=== PATIENT | female | born 1945 | race Caucasian/White ===

== ENCOUNTER 2018-04-13 00:34 | Outpatient (CLI) | payer MEDICARE, BC, SELFPAY ==
[2018-04-13] MEDS: Barium Sulfate 700 MG TAB PO (09:46)
[2018-04-13] MEDS: Barium Sulfate 60% W/V 355 ML BTL PO (09:46)
--- NOTE | 2018-04-13 09:47 | DI.REPORT_ITS ---
SYMPTOMS/DIAGNOSIS: OROPHARYNGEAL DYSPHAGIA, R13.12 MODIFIED BARIUM SWALLOW: Fluoroscopy Time: 1min 7sec Modified barium swallow was performed according to the usual protocol and shows normal deglutition. There is intermittent tertiary contraction of the esophagus in the mid esophageal region. There was also intermittent spasm of the distal esophagus, which appeared to coincide with abdominal pain experienced by the patient. No focal mucosal abnormality identified. The patient has had a previous gastric stapling procedure. A 12 mm barium tablet passed through the esophagus into the stomach and the patient complained of discomfort with the barium tablet in the stomach. There is a question of wall irregularity of the gastric fundus and body; the possibility of gastritis or ulceration is not excluded. CONCLUSION: Unremarkable deglutition on a modified barium swallow. Additional findings include tertiary contractions of the esophagus and intermittent spasm of the distal esophagus. Findings are also noted raising the possibility of gastritis or gastric ulceration as described above. Correlation with endoscopy requested as described above.
== END 2018-04-13 00:35 ==
PROVIDERS: PCP Family Medicine; Visit Provider Internal Medicine
DX: R13.12 Dysphagia, oropharyngeal phase (principal); K22.4 Dyskinesia of esophagus; K22.8 Other specified diseases of esophagus
CPT/HCPCS: 74220; 92611; G8996; J3490

== ENCOUNTER 2018-04-13 03:45 | Outpatient (CLI) | payer MEDICARE, OTHER, SELFPAY | END 2018-04-13 03:46 | PROVIDERS: PCP Family Medicine | DX: R13.12 Dysphagia, oropharyngeal phase (principal) | CPT/HCPCS: 92611; G8996 ==

== ENCOUNTER 2018-05-03 13:52 | Outpatient (REF) | payer MEDICARE, BC, SELFPAY ==
[2018-05-03 16:13] LABS: Anion Gap 4.7 mmol/L (3-11); BUN 49 mg/dL (7-18); CO2 34.3 mmol/L (21.0-32.0); Calcium 9.2 mg/dL (8.5-10.1); Chloride 98 mmol/L (98-107); Estimated GFR 44.04 (mL/min/1.73m2); Glucose 176 mg/dL (70-100); NT-proBNP 4458 pg/mL; Potassium 3.2 mmol/L (3.5-5.1); Sodium 137 mmol/L (136-145)
== END 2018-05-03 14:12 ==
LOC: NCHCN 13:52
PROVIDERS: PCP Family Medicine; Visit Provider Family Medicine
DX: I50.9 Heart failure, unspecified (principal)
CPT/HCPCS: 80048; 83880

== ENCOUNTER 2018-07-01 11:50 | Outpatient (REF) | payer MEDICARE, OTHER, SELFPAY ==
[2018-07-01 20:38] LABS: Hemoglobin A1C 9.8 % (4.5-6.2)
[2018-07-01 22:29] LABS: HCT 39.3 % (36.0-46.0); HGB 13.5 g/dL (12.0-15.5)
== END 2018-07-01 12:10 ==
LOC: NCHCN 11:50
PROVIDERS: PCP Family Medicine; Visit Provider Family Medicine
DX: E11.9 Type 2 diabetes mellitus without complications (principal); R60.0 Localized edema
CPT/HCPCS: 83036; 85014; 85018

== ENCOUNTER 2018-07-11 12:20 | Emergency (ER) | payer MEDICARE, BC, OTHER, SELFPAY ==
[2018-07-11 12:38] VITALS: BP 127/58; PULSE 70; RESP 20; TEMP 37; O2SAT 97
--- NOTE | 2018-07-11 13:26 | DI.RAD_ITS ---
SYMPTOMS/DIAGNOSIS: HAND PAIN S/P FALL, CONCERN FOR 5TH DIGIT INJURY LEFT HAND: Three views. Comparison 03/05/16. There are severe osteoarthritic changes of the left hand. Findings include marked joint space narrowing and marked hypertrophic changes with subchondral cysts and sclerosis. The findings are most marked at the 1st carpometacarpal joint and the interphalangeal joints of the left ring finger. No acute fracture or dislocation is seen. Vascular calcifications are seen in the soft tissues, which are otherwise unremarkable. 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
--- NOTE | 2018-07-11 14:46 | W.ED.GENAD ---
Discharge Plan Disposition Patient Disposition: HOME Condition: Stable Discharge Details Chief Complaint: Orthopedic Clinical Impression: Sprain of left little finger Primary Care Provider: Ruby Lockhart V ED Provider: Dk Webb Home Meds and New Rx's Prescriptions: No Action methocarbamol 500 MG tablet 500 mg PO TID RF: 0 sennosides-docusate sodium [Senokot-S] 1 EACH tablet 1 ea PO Other day RF: 0 levothyroxine 88 MCG tablet 88 mcg PO DAILY RF: 0 docusate sodium [Colace] 100 MG capsule 100 mg PO DAILY RF: 0 cholecalciferol (vitamin D3) [Vitamin D3] 1,000 UNIT capsule 1,000 unit PO RF: 0 lidocaine (PF) in D7.5W 2 ML solution 2 ml Intrathecal RF: 0 liraglutide [Victoza 2-Marcelo] 0.6 MG/0.1 ML pen injector 1.8 mg SQ DAILY RF: 0 Metoprolol Succinate 25 MG TAB.ER.24H 25 mg PO DAILY RF: 0 albuterol sulfate [Proventil HFA] 1 PUFF HFA aerosol inhaler 2 puff Inhalation Q4H PRN PRNQty: 0 RF: 0 aspirin [Aspirin Low-Strength] 81 MG tablet,chewable 81 mg PO DAILY RF: 0 atorvastatin [Lipitor] 10 MG tablet 40 mg PO HS RF: 0 albuterol sulfate 2.5 MG/3 ML solution for nebulization 2.5 mg Inhalation Q4H PRNRF: 0 loratadine-pseudoephedrine [Claritin-D 24 Hour] 1 EACH tablet extended release 24 hr 1 tab PO DAILY PRNRF: 0 ascorbic acid (vitamin C) [Vitamin C] 500 MG tablet 500 mg PO DAILY RF: 0 vitamin E 400 UNIT capsule 400 unit PO DAILY RF: 0 omega-3 fatty acids-fish oil [Fish Oil] 1 EACH capsule 1 ea PO BID RF: 0 liraglutide [Victoza 2-Marcelo] 0.6 MG/0.1 ML pen injector 1.2 mg SQ DAILY RF: 0 insulin glargine [Lantus U-100 Insulin] 100 UNIT/1 ML solution 30 unit SQ HS Qty: 0 RF: 0 diltiazem HCl 30 MG tablet 15 mg PO Q8H Qty: 60 RF: 0 torsemide 10 MG tablet 20 mg PO BID DIURETIC PRNQty: 0 RF: 0 spironolactone 25 MG tablet 12.5 mg PO BID PRNQty: 0 RF: 0 potassium chloride [Klor-Con M10] 10 MEQ tablet,ER particles/crystals 10 meq PO DAILY Qty: 7 RF: 0 clonazepam 1 MG tablet 1 mg PO TID Qty: 15 RF: 0 cephalexin 500 MG capsule 500 mg PO TID Qty: 21 RF: 0 Discharge Instructions Instructions: Finger Sprain (ED) Additional Instructions: Return immediately to the emergency department for any current further concern about emergent need of evaluation for your falls. 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 If your finger continues to have any discomfort feel free to call orthopedist for reassessment as needed. Referrals: Ruby Lockhart MD [Primary Care Provider] - (As previously scheduled) Melecio Friend MD [ [facility]FF [facility]IC[facility]] - Prince Calloway MD [ [facility] ST[facility]FF PHYSICIAN] - Discharge Data Discharge Date/Time-TO BE ENTERED AT DEPARTURE: 07/11/18 14:53 Medical Decision Making Patient presenting the emergency department chief complaint of left little finger injury. Patient states that she fell this morning and injured her finger. Family reports that patient has had recent falls that are increasing in frequency that is been evaluated by primary care provider. Patient states that she is only here for evaluation of her finger. Due to high volume in the emergency department radiological imaging of the finger was ordered prior to examination of the patient. Review of radiological imaging shows no acute fracture. Patient was assessed and is alert and oriented moving all extremities and has no focal neurological deficits but does have pain ecchymosis and swelling to the middle and distal phalanx of the left fifth digit. I feel that this is more of a sprain but I am concerned about patient's frequency of falls. Both patient and daughter states that they are only here due to the finger injury and are not concerned about the falls as they have been assessed and evaluated by primary care and are more attributed to patient's ongoing weakness and deconditioning. Given that patient is in the emergency department I did offer additional testing including labs, cardiac tests as warranted, and CT scan of the head. They refused these at this time and again reiterates they are simply here for examination of the finger they do not want any other exam performed. Did call and speak with primary care office and spoke with nurse of patient's primary care provider. She states that patient has been having thorough workup for this and has had some deconditioning confirming what family member state. Patient does have close follow-up with their office. Given this I do not feel that going against patient wishes is warranted at this time but they were encouraged strongly to return for any new or significant worsening of symptoms or if they wanted any further emergency evaluation of worsening falls. After discussion of diagnosis and plan of care patient and family have no further needs, questions, or concerns and states clear understanding to return to the emergency department for any worsening symptoms. HPI General Mode of arrival: wheelchair. Date/Time Provider Initiated Documentation: 07/11/18 13:13. Limitations to Documentation: no limitations. Information obtained by: patient, family and RN notes reviewed. History of Present Illness 73 year old F presents to the emergency department with the chief complaint of Left little finger injury, with intensity rated at 9. Quality is described as sharp, and is localized to the left and upper extremity. Patient reports no radiation. Patient started experiencing this hour(s) (3) and it has been constant. No relieving factors improve symptom(s), Movement worsens symptoms . Patient notes no other symptoms.. Patient did receive the following treatments prior to arrival, none Related Data Home Medications Medication Instructions Recorded Confirmed albuterol sulfate [Proventil HFA] 2 puff INHALATION Q4H PRN PRN #0 05/12/15 05/21/17 aspirin [Aspirin Low-Strength] 81 mg PO DAILY 05/06/16 05/21/17 albuterol sulfate 2.5 mg INHALATION Q4H PRN 01/12/17 03/29/17 ascorbic acid (vitamin C) [Vitamin 500 mg PO DAILY 01/12/17 05/21/17 C] atorvastatin [Lipitor] 40 mg PO HS 01/12/17 05/21/17 liraglutide [Victoza 2-Marcelo] 1.2 mg SQ DAILY 01/12/17 03/29/17 loratadine-pseudoephedrine 1 tab PO DAILY PRN 01/12/17 03/29/17 [Claritin-D 24 Hour] omega-3 fatty acids-fish oil [Fish 1 ea PO BID 01/12/17 05/21/17 Oil] vitamin E 400 unit PO DAILY 01/12/17 05/21/17 insulin glargine [Lantus U-100 30 unit SQ HS #0 01/15/17 05/21/17 Insulin] diltiazem HCl 15 mg PO Q8H #60 tablet 03/29/17 05/21/17 potassium chloride [Klor-Con M10] 10 meq PO DAILY #7 tabcr 03/29/17 05/21/17 spironolactone 12.5 mg PO BID PRN #0 03/29/17 05/21/17 torsemide 20 mg PO BID DIURETIC PRN #0 03/29/17 05/21/17 Metoprolol Succinate 25 mg PO DAILY tab-cap 05/14/17 05/21/17 cholecalciferol (vitamin D3) 1,000 unit PO 05/14/17 [Vitamin D3] docusate sodium [Colace] 100 mg PO DAILY tab-cap 05/14/17 05/21/17 levothyroxine 88 mcg PO DAILY tab-cap 05/14/17 lidocaine (PF) in D7.5W 2 ml INTRATHECAL 05/14/17 liraglutide [Victoza 2-Marcelo] 1.8 mg SQ DAILY ml 05/14/17 methocarbamol 500 mg PO TID 05/14/17 05/21/17 sennosides-docusate sodium 1 ea PO Other day 05/14/17 05/21/17 [Senokot-S] cephalexin 500 mg PO TID #21 capsule 05/21/17 clonazepam 1 mg PO TID #15 tab 05/21/17 Previous Rx's Medication Instructions Recorded albuterol sulfate [Proventil HFA] 2 puff INHALATION Q4H PRN PRN #0 05/12/15 insulin glargine [Lantus U-100 30 unit SQ HS #0 01/15/17 Insulin] diltiazem HCl 15 mg PO Q8H #60 tablet 03/29/17 potassium chloride [Klor-Con M10] 10 meq PO DAILY #7 tabcr 03/29/17 spironolactone 12.5 mg PO BID PRN #0 03/29/17 torsemide 20 mg PO BID DIURETIC PRN #0 03/29/17 cephalexin 500 mg PO TID #21 capsule 05/21/17 clonazepam 1 mg PO TID #15 tab 05/21/17 Allergies Allergy/AdvReac Type Severity Reaction Status Date / Time cyclobenzaprine HCl Allergy Intermediate hives and Unverified 05/21/17 11:50 [From Flexeril] swelling dofetilide [From Tikosyn] Allergy Mild Hives Unverified 05/21/17 11:50 phenyltoloxamine citrate Allergy Hives Unverified 05/21/17 11:50 [From Percogesic] metformin AdvReac Diarrhea Unverified 05/21/17 11:50 General Stated Complaint: Orthopedic PRAVEEN: 4 Review of Systems Constitutional Reports frequent falls Cardiovascular Denies chest pain, Denies diaphoresis and Denies irregular heart rhythm Musculoskeletal Reports as per HPI, Denies numbness and Denies tingling Neurologic Reports frequent falls, Denies numbness and Denies tingling PFSH Social History Smoking/Tobacco Use Status: Never Exam Const General: cooperative, healthy appearing and no acute distress Orientation: alert, awake and oriented x3 HENMT Head: normal to inspection, normocephalic and atraumatic Eyes General: appearance normal, both eyes and all related structures Pupils: PERRL Resp Effort & Inspection: normal respiratory effort and able to speak in complete sentences Cardio Rate: regular rate Rhythm: regular rhythm Extrem General: normal exam except as noted Left upper extremity: hand Details: normal capillary refill, neuromotor exam normal, neurosensory exam normal, tendon exam normal, tenderness Location: of the 5th digit Location: at the middle phalanx and at the distal phalanx, normal ROM of fingers, swelling Location: of the 5th digit Location: at the middle phalanx and ecchymosis Location: of the 5th digit Location: at the middle phalanx and at the PIP joint; no lacerations and no crepitus Course Vital Signs Temperature 37.0 C 07/11/18 12:38 Pulse 70 07/11/18 12:38 Respiratory Rate 20 07/11/18 12:38 Blood Pressure 127/58 L 07/11/18 12:38 Pulse Oximetry 97 07/11/18 12:38 Temperature 37.0 C 07/11/18 12:38 Temperature Source Temporal Artery Scan 07/11/18 12:38 Pulse 70 07/11/18 12:38 Respiratory Rate 20 07/11/18 12:38 Blood Pressure 127/58 L 11/12/18 12:38 Blood Pressure Position Sitting 07/11/18 12:38 Pulse Oximetry 97 07/11/18 12:38 Oxygen Delivery Method Room Air 07/11/18 12:38 Oxygen Flow Rate 0 07/11/18 12:38 Pain Level 9 07/11/18 12:38
== END 2018-07-11 14:53 | disposition home or self-care (01) ==
PROVIDERS: Emergency Provider Nurse Practitioner Family; PCP Family Medicine
DX: S63.617A Unspecified sprain of left little finger, initial encounter (principal); W18.30XA Fall on same level, unspecified, initial encounter; R29.6 Repeated falls; J44.9 Chronic obstructive pulmonary disease, unspecified; E11.9 Type 2 diabetes mellitus without complications; Z79.4 Long term (current) use of insulin; I10 Essential (primary) hypertension
CPT/HCPCS: 99283; 73130

== ENCOUNTER 2018-07-13 01:57 | Outpatient (CLI) | payer MEDICARE, OTHER, SELFPAY ==
[2018-07-13 08:54] LABS: Bilirubin Negative (Negative); Blood Trace-intact (Negative); Clarity Clear; Glucose Negative (Negative); Ketones Negative (Negative); Leukocyte Esterase Trace (Negative); Nitrite Negative (Negative); Specific Gravity 1.015 (1.005-1.025)
[2018-07-13 09:08] LABS: Bacteria Rare HPF (Negative); Crystals Negative HPF (Negative); Epithelial Cells Moderate HPF (Negative); Mucus Trace (Negative)
[2018-07-13 09:09] LABS: C & S Indicated? No/Sq. Contamination; Casts 3-5 Hyaline LPF (Negative)
[2018-07-13 09:28] LABS: ALT 20 U/L (12-78); AST 25 U/L (15-37); Albumin 3.2 g/dL (3.4-5.0); Alkaline Phosphatase 126 U/L (46-116); Anion Gap 8.5 mmol/L (3-11); BUN 54 mg/dL (7-18); CO2 30.5 mmol/L (21.0-32.0); CREATININE 1.51 mg/dL (0.55-1.02); Calcium 9.3 mg/dL (8.5-10.1); Chloride 91 mmol/L (98-107); Estimated GFR 33.78 (mL/min/1.73m2); Glucose 198 mg/dL (70-100); Potassium 3.7 mmol/L (3.5-5.1); Sodium 130 mmol/L (136-145); TSH (W/Ref FT4) 15.48 uIU/mL (0.358-3.74); Total Protein 7.1 g/dL (6.4-8.2)
[2018-07-13 09:55] LABS: FREE T4 1.11 ng/dL (0.76-1.46)
== END 2018-07-13 02:17 ==
PROVIDERS: PCP Family Medicine; Visit Provider Family Medicine
DX: R60.0 Localized edema (principal); R35.0 Frequency of micturition; I10 Essential (primary) hypertension; E11.9 Type 2 diabetes mellitus without complications
CPT/HCPCS: 36415; 80053; 81003; 81015; 84439; 84443

== ENCOUNTER 2018-07-26 12:57 | Emergency (ER) | payer MEDICARE, OTHER, SELFPAY ==
[2018-07-26] VITALS (92 sets, daily range): BP systolic 61–107; BP diastolic 13–83; PULSE 56–119; RESP 9–95; TEMP 36.9–37.1; O2SAT 89–99
--- NOTE | 2018-07-26 13:10 | DI.US_ITS ---
SYMPTOMS/DIAGNOSIS: SWELLING AND PAIN RIGHT LOWER EXTREMITY ULTRASOUND: There is edema in the calf region. The deep venous system is freely compressible. No thrombus is visible. Doppler venous waveform augments normally. No superficial venous thrombosis or Garcia's cyst is seen. IMPRESSION: Calf edema. No evidence of DVT.
[2018-07-26] MEDS: Normal Saline 1,000 ML 1000 ML IV (13:15)
--- NOTE | 2018-07-26 13:15 | ED.GENADUL_ITS ---
Discharge Plan Disposition Patient Disposition: [facility] ([facility]) Condition: Critical Discharge Details Chief Complaint: Vascular Clinical Impression: Cellulitis of right leg, Sepsis Primary Care Provider: Ruby Lockhart V ED Provider: Darron Gorman Home Meds and New Rx's Prescriptions: No Action methocarbamol 500 MG tablet 500 mg PO TID RF: 0 sennosides-docusate sodium [Senokot-S] 1 EACH tablet 1 ea PO Other day RF: 0 levothyroxine 88 MCG tablet 88 mcg PO DAILY RF: 0 docusate sodium [Colace] 100 MG capsule 100 mg PO DAILY RF: 0 cholecalciferol (vitamin D3) [Vitamin D3] 1,000 UNIT capsule 1,000 unit PO RF: 0 lidocaine (PF) in D7.5W 2 ML solution 2 ml Intrathecal RF: 0 liraglutide [Victoza 2-Marcelo] 0.6 MG/0.1 ML pen injector 1.8 mg SQ DAILY RF: 0 Metoprolol Succinate 25 MG TAB.ER.24H 25 mg PO DAILY RF: 0 albuterol sulfate [Proventil HFA] 1 PUFF HFA aerosol inhaler 2 puff Inhalation Q4H PRN PRNQty: 0 RF: 0 aspirin [Aspirin Low-Strength] 81 MG tablet,chewable 81 mg PO DAILY RF: 0 atorvastatin [Lipitor] 10 MG tablet 40 mg PO HS RF: 0 albuterol sulfate 2.5 MG/3 ML solution for nebulization 2.5 mg Inhalation Q4H PRNRF: 0 loratadine-pseudoephedrine [Claritin-D 24 Hour] 1 EACH tablet extended release 24 hr 1 tab PO DAILY PRNRF: 0 ascorbic acid (vitamin C) [Vitamin C] 500 MG tablet 500 mg PO DAILY RF: 0 vitamin E 400 UNIT capsule 400 unit PO DAILY RF: 0 omega-3 fatty acids-fish oil [Fish Oil] 1 EACH capsule 1 ea PO BID RF: 0 liraglutide [Victoza 2-Marcelo] 0.6 MG/0.1 ML pen injector 1.2 mg SQ DAILY RF: 0 insulin glargine [Lantus U-100 Insulin] 100 UNIT/1 ML solution 30 unit SQ HS Qty: 0 RF: 0 diltiazem HCl 30 MG tablet 15 mg PO Q8H Qty: 60 RF: 0 torsemide 10 MG tablet 20 mg PO BID DIURETIC PRNQty: 0 RF: 0 spironolactone 25 MG tablet 12.5 mg PO BID PRNQty: 0 RF: 0 potassium chloride [Klor-Con M10] 10 MEQ tablet,ER particles/crystals 10 meq PO DAILY Qty: 7 RF: 0 clonazepam 1 MG tablet 1 mg PO TID Qty: 15 RF: 0 Medical Decision Making 13:15 --73-year-old female here with painful right lower leg. Patient has dopplerable pulses bilateral dorsalis pedis. Patient has difficult IV access. She is hypotensive. The right external jugular 18-gauge peripheral IV was placed by me. Plan to give IV fluid bolus. Will check screening labs. Will check EKG. Consider DVT right lower extremity. Will obtain ultrasound. -- ecg reviewed and interpreted by me: V paced rhythm 79 bpm with some PVCs. No Stemi. 15:15 -- I returned from active cardiac arrest in another room to reassess patient: patient continues to be hypotensive despite IVF bolus 2L crystaloid. Will start norepinephrine gtt. Patient continues to have pain in right leg. Repeat doppler rt foot unchanged. US interpreted by radiology: no DVT. Soft tissue edema. Concern for cellulitis. Leukocytosis noted. Will send lactate and blood cx. Will start vancomycin IV. Patient confirms DNR/DNI as noted in record. -- BP improved on levaphed infusion at 8mcg/min. -- Updated patients family (daughter) as to course and plan. 17:00 -- Spoke with the patients guide setter at [facility] who called to check on her : he noted would be sending medical records regarding chronic disease. Medical records received and reviewed: Patient has a history of nonischemic cardiomyopathy, nonobstructive coronary artery disease, atrial fibrillation status post AV arun ablation, rax-jupcake-gjcjptjus diabetes. Ptient has chronic hypotension that is treated with midodrine. Last office visit 05/31/18 notes BP 117/50. -- No ICU beds available at [facility]. Plan to transfer to tertiary care facility. Family and patient requesting transfer to [facility] given well established care there. Spoke to talon to inquire transfer capability. Call to [facility] to request transfer. -- Spoke with Dr. Broderick (crit care at [facility]) she will accept patient in transfer. Awaiting bed. --X-ray of the right tib-fib reviewed and interpreted by radiology: No acute bony normality. No free air noted in soft tissue. --Daughter now notes that patient may have had incontinence of stool that contaminated wound posterior right lower extremity. I will broaden antibiotic coverage with Zosyn IV. -- Lactate elevated 4.7. HPI General Mode of arrival: EMS . Date/Time Provider Initiated Documentation: 07/26/18 13:10 . Limitations to Documentation: other (poor historian) . Information obtained by: patient and EMS . HPI Narrative: 73-year-old female with history of diabetes, presents with chief complaint of right lower extremity pain. Patient notes that pain started last night and has persisted. Pain is severe. Constant. Localized to ankle and calf. Associated swelling. No fever. Patient unable to stand 2/2 pain. No trauma. Related Data Home Medications Medication Instructions Recorded Confirmed albuterol sulfate [Proventil HFA] 2 puff INHALATION Q4H PRN PRN #0 05/12/15 aspirin [Aspirin Low-Strength] 81 mg PO DAILY 05/06/16 07/26/18 albuterol sulfate 2.5 mg INHALATION Q4H PRN 01/12/17 07/26/18 ascorbic acid (vitamin C) [Vitamin 500 mg PO DAILY 01/12/17 07/26/18 C] atorvastatin [Lipitor] 40 mg PO HS 01/12/17 07/26/18 liraglutide [Victoza 2-Marcelo] 1.2 mg SQ DAILY 01/12/17 07/26/18 loratadine-pseudoephedrine 1 tab PO DAILY PRN 01/12/17 07/26/18 [Claritin-D 24 Hour] omega-3 fatty acids-fish oil [Fish 1 ea PO BID 01/12/17 07/26/18 Oil] vitamin E 400 unit PO DAILY 01/12/17 07/26/18 insulin glargine [Lantus U-100 30 unit SQ HS #0 01/15/17 07/26/18 Insulin] diltiazem HCl 15 mg PO Q8H #60 tablet 03/29/17 07/26/18 potassium chloride [Klor-Con M10] 10 meq PO DAILY #7 tabcr 03/29/17 07/26/18 spironolactone 12.5 mg PO BID PRN #0 03/29/17 07/26/18 torsemide 20 mg PO BID DIURETIC PRN #0 03/29/17 07/26/18 Metoprolol Succinate 25 mg PO DAILY tab-cap 05/14/17 07/26/18 cholecalciferol (vitamin D3) 1,000 unit PO 05/14/17 [Vitamin D3] docusate sodium [Colace] 100 mg PO DAILY tab-cap 05/14/17 07/26/18 levothyroxine 88 mcg PO DAILY tab-cap 05/14/17 07/26/18 lidocaine (PF) in D7.5W 2 ml INTRATHECAL 05/14/17 liraglutide [Victoza 2-Marcelo] 1.8 mg SQ DAILY ml 05/14/17 07/26/18 methocarbamol 500 mg PO TID 05/14/17 07/26/18 sennosides-docusate sodium 1 ea PO Other day 05/14/17 07/26/18 [Senokot-S] clonazepam 1 mg PO TID #15 tab 05/21/17 07/26/18 Previous Rx's Medication Instructions Recorded albuterol sulfate [Proventil HFA] 2 puff INHALATION Q4H PRN PRN #0 05/12/15 insulin glargine [Lantus U-100 30 unit SQ HS #0 01/15/17 Insulin] diltiazem HCl 15 mg PO Q8H #60 tablet 03/29/17 potassium chloride [Klor-Con M10] 10 meq PO DAILY #7 tabcr 03/29/17 spironolactone 12.5 mg PO BID PRN #0 03/29/17 torsemide 20 mg PO BID DIURETIC PRN #0 03/29/17 clonazepam 1 mg PO TID #15 tab 05/21/17 Allergies Allergy/AdvReac Type Severity Reaction Status Date / Time cyclobenzaprine HCl Allergy Intermediate hives and Unverified 07/26/18 13:08 [From Flexeril] swelling dofetilide [From Tikosyn] Allergy Mild Hives Unverified 07/26/18 13:08 phenyltoloxamine citrate Allergy Hives Unverified 07/26/18 13:08 [From Percogesic] metformin AdvReac Diarrhea Unverified 07/26/18 13:08 General Stated Complaint: Vascular PRAVEEN: 2 Review of Systems Review of Systems All systems reviewed & are unremarkable except as noted in HPI and below Cardiovascular Denies chest pain and Reports dyspnea on exertion (chronic) Respiratory Reports dyspnea on exertion (chronic) PFSH Social History Smoking/Tobacco Use Status: Never Exam Const General: cooperative and uncomfortable Orientation: alert, awake, oriented to person, oriented to place and oriented to time [facility] Head: normocephalic and atraumatic Mouth: mucous membranes dry Eyes Conjunctivae: normal conjunctivae Sclera: normal sclerae EOM: EOM intact bilaterally Neck Neck: trachea midline and supple Resp Auscultation: clear to auscultation bilaterally, no rales, no rhonchi and no wheezes Cardio Jugular venous pressure: no JVD Rate: tachycardic Rhythm: regular rhythm GI Palpation: soft, not firm, no guarding, no masses, not rigid and nontender Skin General skin exam: erythema (RLE) and other (no crepitus; shallow ulcer posterior lower leg) Neuro General: alert, awake, oriented x3 and tone normal Extrem General: calf tenderness and edema Laterality: right Other: no palpable pulse, DP by doppler Psych Appearance: well kempt Affect: anxious affect Course Vital Signs Temperature 37 C 07/26/18 13:04 Pulse 87 07/26/18 13:04 Respiratory Rate 93 H 07/26/18 13:04 Blood Pressure 72/56 L 07/26/18 13:04 Pulse Oximetry 93 L 07/26/18 13:04 Temperature 37 C 07/26/18 13:04 Temperature Source Skin 07/26/18 13:04 Pulse 87 07/26/18 13:04 Respiratory Rate 93 H 07/26/18 13:04 Respiratory Effort Non-Labored 07/26/18 13:04 Blood Pressure 72/56 L 07/26/18 13:04 Blood Pressure Position Supine 07/26/18 13:04 Pulse Oximetry 93 L 07/26/18 13:04 Oxygen Delivery Method Room Air 07/26/18 13:04 Oxygen Flow Rate 0 07/26/18 13:04 Pain Level 9 07/26/18 13:04 Critical Care Time Critical Care Time: Yes Total Critical Care Time: 45 Attestation: I spent greater than 45 minutes addressing this patient's immediate life threat
[2018-07-26 13:26] LABS: Abs Immature Grans 0.03 k/cumm (0.0-0.09); Absolute Basophil Count 0.02 k/cumm (0.0-0.2); Absolute Lymphocyte Count 0.45 k/cumm (1.2-3.4); Absolute Monocyte Count 0.77 k/cumm (0.11-0.7); Basophils % 0.2; HCT 37.5 % (36.0-46.0); HGB 13.2 g/dL (12.0-15.5); Immature Grans % 0.3; Lymphocytes % 4.2; Mean Corp. HGB Concentration 35.2 g/dL (32.0-36.0); Mean Corpuscular Hemoglobin 31.7 pg (27.0-33.0); Mean Corpuscular Volume 90.1 fL (80-95); Mean Platelet Volume 12.8 fL (8.0-11.0); Monocytes % 7.1; Neutrophils % 88.2; RBC 4.16 m/cumm (4.00-5.20); RBC Distribution Width 16.7 % (11.7-14.6); White Blood Cell Count 10.83 k/cumm (4.4-10.8)
[2018-07-26 13:29] LABS: Absolute Neutrophil Count 9.55 k/cumm (1.2-6.7)
[2018-07-26 13:44] LABS: ALT 18 U/L (12-78); AST 24 U/L (15-37); Albumin 2.9 g/dL (3.4-5.0); Alkaline Phosphatase 112 U/L (46-116); Anion Gap 11.8 mmol/L (3-11); BUN 74 mg/dL (7-18); Bilirubin, Total 4.5 mg/dL (0.2-1.0); CO2 31.2 mmol/L (21.0-32.0); CREATININE 2.04 mg/dL (0.55-1.02); Calcium 9.2 mg/dL (8.5-10.1); Chloride 85 mmol/L (98-107); Estimated GFR 23.87 (mL/min/1.73m2); Glucose 173 mg/dL (70-100); Sodium 128 mmol/L (136-145); Total Protein 6.6 g/dL (6.4-8.2); Troponin I 0.05 ng/mL (0.00-0.06)
[2018-07-26 13:48] LABS: Potassium 2.5 mmol/L (3.5-5.1)
[2018-07-26 13:52] LABS: Diff Comment Diff Reviewed; Platelet Count 88 x1000/uL (130-400); Poikilocytes 2+; Polychromasia Present
[2018-07-26] MEDS: Lactated Ringers 1,000 ML 1000 ML IV (14:20)
[2018-07-26] MEDS: fentaNYL 100 MCG/2 ML VIAL 50 MCG IVP ×2 (15:27→16:40)
[2018-07-26] MEDS: Lactated Ringers 1,000 ML 200 ML IV (15:37)
[2018-07-26 15:42] LABS: Bilirubin Small (Negative); Blood Negative (Negative); Clarity Clear; Glucose Negative (Negative); Ketones Negative (Negative); Leukocyte Esterase Negative (Negative); Nitrite Negative (Negative); Specific Gravity 1.015 (1.005-1.025)
[2018-07-26] MEDS: POTASSIUM CHLORIDE 20 MEQ/100 ML BAG 50 MEQ IVPB (15:57)
[2018-07-26 16:02] LABS: Bacteria Negative HPF (Negative); C & S Indicated? No; Casts Negative LPF (Negative); Crystals Negative HPF (Negative); Epithelial Cells Negative HPF (Negative); Mucus Negative (Negative); Other Cells Negative (Negative); RBC Negative (0-2); WBC 0-2 HPF (0-5)
[2018-07-26] MEDS: VANCOMYCIN 1,250 MG in Normal Saline 250 ML 166.667 MG IVPB (16:07)
--- NOTE | 2018-07-26 17:28 | DI.RAD_ITS ---
SYMPTOMS/DIAGNOSIS: PAIN, SWELLING RIGHT TIBIA AND FIBULA: Comparison is made with right knee dated February,. There has been no change in the appearance of the right total knee prosthesis. No fracture or bony erosions are seen. There are prominent heel spurs. Degenerative changes are noted at the ankle. IMPRESSION: No acute abnormality.
[2018-07-26 17:42] LABS: Lactate-non-spesis 4.7 mmol/L (0.6-1.4)
--- NOTE | 2018-07-26 18:02 | DI.VRAD_ITS ---
EXAM: XR Right Tibia and Fibula, 2 Views EXAM DATE/TIME: 07/26/2018 5:28 PM CLINICAL HISTORY: 73 years old, female; Signs and symptoms; Swelling, leg or foot and swelling or effusion of joint; Other: Tib fib RT TECHNIQUE: XR Right tibia and fibula 2 views COMPARISON: CR RIGHT KNEE 3 VIEWS 03/05/2016 9:14 AM FINDINGS: Prior total knee replacement in anatomic alignment. Degenerative arthritis of the ankle joint. No evidence of acute fracture. Soft tissues unremarkable. IMPRESSION: No evidence of acute bony abnormality. Dictated and Authenticated by: Jean Campbell MD. Ordering:MICAH CAMARILLO MD
[2018-07-26] MEDS: PIPERACILLIN/TAZO 4.5 GM in Normal Saline 100 ML IVPB (18:14)
== END 2018-07-26 18:43 | disposition short-term general hospital (02) ==
PROVIDERS: Emergency Provider Student in an Organized Health Care Education/Training Program; PCP Family Medicine
DX: A41.9 Sepsis, unspecified organism (principal); L03.115 Cellulitis of right lower limb; I48.91 Unspecified atrial fibrillation; E11.9 Type 2 diabetes mellitus without complications
CPT/HCPCS: 36415; 36416; 80053; 82962; 87040; 93005; 96361; 96365; 96366; 96367; 96368; 96375; 99291; 73590; 81003; 81015; 83605; 83735; 84484; 85025; 93010; 93971; J1885; J2543; J3010; J3480